=== PATIENT | female | born 1975 ===

== ENCOUNTER 2017-09-21 13:42 | Outpatient (CLI) | payer OTHER | END 2017-09-21 13:43 | disposition home or self-care (01) | LOC: BICCT 13:42 | PROVIDERS: ATTEND Chiropractor | DX: M50.123 Cervical disc disorder at C6-C7 level with radiculopathy (principal); S42.022A Displaced fracture of shaft of left clavicle, initial encounter for closed fracture; M54.2 Cervicalgia | CPT/HCPCS: 71250 ==